=== PATIENT | male | born 1950 | race Caucasian/White ===

== ENCOUNTER → 2016-09-03 | Outpatient (CLI) | payer BC ==
[~2016-09-03] MED LIST: ASPEC81 PO; BUPR100T8 PO; GLC/500 PO; LOVA20TA4 PO; MULT-506 PO; MULT-920 PO
[2016-09-03 13:18] LABS: BASO % 0.7 %; BASO ABS # 0.04 K/uL (0-0.2); COMPLETE YES; EOS % 1.5 %; HEMATOCRIT 42.2 % (42-52); IG% 0.2 %; LYMPH % 29.9 %; LYMPH ABS # 1.83 K/uL (1.2-3.4); MEAN CELL VOLUME 84.7 fL (80-100); MEAN CORPUSCULAR HEMOGLOBIN 29.9 pg (25-34); MEAN CORPUSCULAR HGB CONC 35.3 g/dl (32-36); MEAN PLATELET VOLUME 9.9 fL (7.4-10.4); MONO % 9.2 %; NEUT % 58.5 %; PLATELET COUNT 146 K/uL (130-400); RED BLOOD COUNT 4.98 M/uL (4.7-6.1); WHITE BLOOD COUNT 6.12 K/uL (4.8-10.8)
[2016-09-03 13:26] LABS: ALT/SGPT 56 U/L (12-78); BLOOD UREA NITROGEN 13 mg/dl (7-18); BUN/CREATININE RATIO 16.2 (10-20); CALCIUM 9.2 mg/dl (8.5-10.1); CARBON DIOXIDE 25 mmol/L (21-32); CHLORIDE 104 mmol/L (98-107); CHOLESTEROL 162 mg/dl (0-200); CREATININE 0.81 mg/dl (0.60-1.40); GLUCOSE 117 mg/dl (70-99); POTASSIUM 4.1 mmol/L (3.5-5.1); SODIUM 140 mmol/L (136-145)
[2016-09-03 13:29] LABS: ALB/GLOB RATIO 1.1 (0.9-2); ALKALINE PHOSPHATASE 72 U/L (45-117); AST/SGOT 31 U/L (15-37); CHOLESTEROL/HDL RATIO 4.5; HDL CHOLESTEROL 36 mg/dl; LDL CHOLESTEROL CALCULATED 94 mg/dl; TRIGLYCERIDES 161 mg/dl (0-150); VERY LOW DENSITY LIPOPROT CALC 32 mg/dl
[2016-09-03 14:03] LABS: ESTIMATED AVERAGE GLUCOSE 131 mg/dl; HA1C FLAG Normal (Normal)
== END | disposition home or self-care (01) ==
LOC: C.LABSPEC 12:52
PROVIDERS: ATTEND Family Medicine
DX: E11.9 Type 2 diabetes mellitus without complications (principal); E78.2 Mixed hyperlipidemia; F41.1 Generalized anxiety disorder

== ENCOUNTER → 2017-03-10 | Outpatient (CLI) | payer BC ==
[2017-03-10 13:42] LABS: BASO % 0.5 %; BASO ABS # 0.03 K/uL (0-0.2); COMPLETE YES; EOS % 1.5 %; HEMATOCRIT 42.3 % (42-52); IG% 0.2 %; LYMPH % 31.7 %; LYMPH ABS # 1.92 K/uL (1.2-3.4); MEAN CELL VOLUME 87.2 fL (80-100); MEAN CORPUSCULAR HEMOGLOBIN 29.3 pg (25-34); MEAN CORPUSCULAR HGB CONC 33.6 g/dl (32-36); MONO % 7.6 %; NEUT % 58.5 %; PLATELET COUNT 128 K/uL (130-400); RED BLOOD COUNT 4.85 M/uL (4.7-6.1); WHITE BLOOD COUNT 6.06 K/uL (4.8-10.8)
[2017-03-10 13:57] LABS: ESTIMATED AVERAGE GLUCOSE 140 mg/dl; HA1C FLAG Normal (Normal)
[2017-03-10 14:25] LABS: ALT/SGPT 66 U/L (12-78); BLOOD UREA NITROGEN 14 mg/dl (7-18); BUN/CREATININE RATIO 13.8 (10-20); CARBON DIOXIDE 26 mmol/L (21-32); CHLORIDE 106 mmol/L (98-107); CHOLESTEROL 145 mg/dl (0-200); GLUCOSE 129 mg/dl (70-99); POTASSIUM 4.1 mmol/L (3.5-5.1); SODIUM 139 mmol/L (136-145); TRIGLYCERIDES 117 mg/dl (0-150); VERY LOW DENSITY LIPOPROT CALC 23 mg/dl
[2017-03-10 14:29] LABS: ALKALINE PHOSPHATASE 72 U/L (45-117); AST/SGOT 39 U/L (15-37); CHOLESTEROL/HDL RATIO 4.7; HDL CHOLESTEROL 31 mg/dl; LDL CHOLESTEROL CALCULATED 91 mg/dl
== END | disposition home or self-care (01) ==
LOC: C.LABSPEC 10:21
PROVIDERS: ATTEND Family Medicine
DX: E11.9 Type 2 diabetes mellitus without complications (principal); E78.2 Mixed hyperlipidemia; F41.1 Generalized anxiety disorder; Z12.5 Encounter for screening for malignant neoplasm of prostate

== ENCOUNTER → 2017-03-29 | Outpatient (CLI) | payer BC ==
[2017-03-29 14:38] LABS: BASO % 0.3 %; BASO ABS # 0.02 K/uL (0-0.2); COMPLETE YES; EOS % 1.5 %; HEMATOCRIT 41.2 % (42-52); IG% 0.2 %; LYMPH % 28.7 %; LYMPH ABS # 1.87 K/uL (1.2-3.4); MEAN CELL VOLUME 85.8 fL (80-100); MEAN CORPUSCULAR HEMOGLOBIN 29.4 pg (25-34); MEAN CORPUSCULAR HGB CONC 34.2 g/dl (32-36); MEAN PLATELET VOLUME 10.3 fL (7.4-10.4); MONO % 8.1 %; NEUT % 61.2 %; PLATELET COUNT 141 K/uL (130-400); WHITE BLOOD COUNT 6.51 K/uL (4.8-10.8)
[2017-03-29 15:03] LABS: ALT/SGPT 64 U/L (12-78); AST/SGOT 36 U/L (15-37); BLOOD UREA NITROGEN 16 mg/dl (7-18); BUN/CREATININE RATIO 18.1 (10-20); CALCIUM 8.6 mg/dl (8.5-10.1); CARBON DIOXIDE 25 mmol/L (21-32); CHLORIDE 105 mmol/L (98-107); CREATININE 0.86 mg/dl (0.60-1.40); GLUCOSE 138 mg/dl (70-99); SODIUM 138 mmol/L (136-145)
[2017-03-29 15:14] LABS: ALB/GLOB RATIO 1.1 (0.9-2); ALKALINE PHOSPHATASE 73 U/L (45-117)
== END | disposition home or self-care (01) ==
LOC: C.LABSPEC 13:44
PROVIDERS: ATTEND Family Medicine
DX: R07.89 Other chest pain (principal)

== ENCOUNTER → 2017-09-20 | Outpatient (CLI) | payer BC ==
[2017-09-20 14:05] LABS: BASO % 0.3 %; BASO ABS # 0.02 K/uL (0-0.2); EOS % 1.7 %; EOS ABS # 0.11 K/uL (0-0.5); HEMATOCRIT 42.3 % (42-52); HEMOGLOBIN 14.3 g/dL (14.0-18.0); IG# 0.01 K/uL (0.00-0.02); LYMPH ABS # 1.84 K/uL (1.2-3.4); MEAN CELL VOLUME 86.2 fL (80-100); MEAN CORPUSCULAR HEMOGLOBIN 29.1 pg (25-34); MEAN CORPUSCULAR HGB CONC 33.8 g/dl (32-36); MEAN PLATELET VOLUME 10.1 fL (7.4-10.4); MONO % 7.1 %; MONO ABS # 0.45 K/uL (0.11-0.59); NEUT % 61.7 %; NEUT ABS # 3.92 K/uL (1.4-6.5); PLATELET COUNT 135 K/uL (130-400); RED CELL DISTRIBUTION WIDTH CV 13.3 % (11.5-14.5); RED CELL DISTRIBUTION WIDTH SD 41.9 fL (36.4-46.3); WHITE BLOOD COUNT 6.35 K/uL (4.8-10.8)
[2017-09-20 14:33] LABS: ALBUMIN 3.9 gm/dl (3.4-5.0); ALT/SGPT 58 U/L (12-78); AST/SGOT 34 U/L (15-37); BLOOD UREA NITROGEN 16 mg/dl (7-18); CALCIUM 9.1 mg/dl (8.5-10.1); CARBON DIOXIDE 27 mmol/L (21-32); CREATININE 1.01 mg/dl (0.60-1.40); GLUCOSE 133 mg/dl (70-99); POTASSIUM 4.2 mmol/L (3.5-5.1); SODIUM 137 mmol/L (136-145)
[2017-09-20 14:36] LABS: ALKALINE PHOSPHATASE 72 U/L (45-117); CHOLESTEROL 148 mg/dl (0-200); LDL CHOLESTEROL CALCULATED 91 mg/dl; TOTAL PROTEIN 7.6 gm/dl (6.4-8.2)
[2017-09-21 07:27] LABS: HEMOGLOBIN A1C 6.4 % (4.5-5.6)
== END | disposition home or self-care (01) ==
LOC: C.LABSPEC 13:25
PROVIDERS: ATTEND Family Medicine
DX: E11.9 Type 2 diabetes mellitus without complications (principal)

== ENCOUNTER 2023-12-01 08:44 | Observation (INO) ==
[2023-12-01 09:16] LABS: Basophils # (auto) 0.03 K/uL (0.00-0.20); Basophils % (auto) 0.5 %; Eosinophils # (auto) 0.17 K/uL (0.00-0.50); Eosinophils % (auto) 2.7 %; Hematocrit (blood only) 39.3 % (42.0-52.0); Hemoglobin 13.1 g/dl (14.0-18.0); Immature Granulocytes # (auto) 0.02 K/uL (0.01-0.20); Immature Granulocytes % (auto) 0.3 %; Lymphocytes # (auto) 1.48 K/uL (1.20-3.40); Lymphocytes % (auto) 23.8 %; Mean Corpuscular Hemoglobin 28.4 pg (25.0-34.0); Mean Corpuscular Hgb Conc 33.3 g/dL (32.0-36.0); Mean Corpuscular Volume 85.1 fL (80.0-100.0); Mean Platelet Volume 9.4 fL (9.4-12.4); Monocytes # (auto) 0.56 K/uL (0.11-0.59); Neutrophils # (auto) 3.95 K/uL (1.40-6.50); Neutrophils % (auto) 63.7 %; Platelet Count 188 K/uL (130-400); RDW Coefficient of Variation 14.1 % (11.5-14.5); RDW Standard Deviation 43.5 fL (36.4-46.3); Red Blood Count 4.62 M/uL (4.70-6.10); White Blood Count 6.21 K/ul (4.8-10.8)
[2023-12-01 09:17] LABS: Appearance Urine Clear (Clear); Bilirubin Urine Negative (Negative); Blood Urine Negative (Negative); Color Urine Yellow; Glucose Urine UA Negative (Negative); Ketones Urine Negative (Negative); Leukocyte Esterase Urine Negative (Negative); Nitrite Urine Negative (Negative); Protein Urine Negative (Negative); Specific Gravity Urine 1.007 (1.000-1.030); Urobilinogen Urine Negative (Negative)
[2023-12-01 09:39] LABS: Albumin Globulin Ratio 1.3 (0.9-2); Albumin Level 4.1 gm/dl (3.4-5.0); BUN Creatinine Ratio 10.9 (10-20); Bilirubin,Total 0.6 mg/dl (0.2-1.0); Calcium 9.1 mg/dl (8.6-10.3); Creatinine Clr Calc Pharmacy 70.6 ml/min; Est GFR (African American) 85.1 ml/min; Est GFR (Non-African American) 73.4 ml/min; Globulin 3.1 gm/dl (2.5-4.0); Potassium 4.2 mmol/L (3.5-5.1); Total Protein 7.2 gm/dl (6.0-8.3)
[2023-12-01 09:40] LABS: Partial Thromboplastin Ratio 0.9; Partial Thromboplastin Time 25 Seconds (21-31)
--- NOTE | 2023-12-01 09:41 | Emergency Department Note ---
Impression & Plan Exertional chest pain ED Provider Note Provider: Meet Siu MD DATE OF SERVICE: 12/01/2023 CHIEF COMPLAINT: Referred by , Intermittent chest pain HISTORY OF PRESENT ILLNESS: Patient is a 73-year-old gentleman history of diabetes, dyslipidemia and varicosities of the leg presenting here today referred from the outpatient doctors office. Patient states over the last 3 to 4 months he has been having intermittent exertionally provoked chest discomfort in the mid to left chest. Describes a burning in nature without radiation. States over this time has had couple episodes of some loose stools and nausea and a bit of stomach upset but it does not seem correlated with when he having the chest discomfort. No personal cardiac history reported for the patient states he is stress test about 5 years ago is reassuring. Not on blood thinners at this time and denies recent travel. Is planning to have outpatient follow-up regarding the varicosity in his leg this coming week. Does take aspirin daily by his report. Does not report any significant shortness of breath. Patient states walking to the office today he developed chest discomfort with exertion that improves after a period of rest. No active chest pain at this time. PAST MEDICAL HISTORY: As noted above MEDICATIONS: Reviewed home medications FMH: Uncle with early cardiac history SOCIAL HISTORY: , psychologist, distant former smoker PHYSICAL EXAM: GENERAL: alert and oriented in no acute distress on stretcher Head: normocephalic and atraumatic EYES: No injection, discharge or icterus. NECK: Trachea midline. ENT: Mucous membranes pink and moist. LUNGS: Airway patent. No retractions. Breath sounds clear HEART: Regular rate and rhythm. No chest wall tenderness ABDOMEN: Soft and non-tender, without guarding or rebound. No appreciable masses SKIN: Acyanotic, warm, dry, without rashes EXTREMITIES: Without swelling, tenderness or deformity NEUROLOGICAL: No focal deficits. No aphasia. No facial droop or slurred speech. Ambulatory. EK bpm sinus rhythm first-degree AV block. No PVC with 1 PAC noted. No acute ST segment elevation with some inferior T wave inversions and a QTc of 442. CONTINUOUS CARDIAC MONITORING: was ordered and showed a heart rate of 70s to 80s bpm in sinus rhythm first-degree heart block Patient's laboratory studies and imaging reviewed. Differential includes Fracture, subluxation, dislocation, contusion, ligamentous injury, neurovascular, compartment syndrome, rhabdomyolysis, as well as other pathologies. IMPRESSION/MEDICAL DECISION MAKING: Patient well-appearing without active symptoms at this time. Does report some chest pain with even just walking to the office earlier. Has a several month history of similar. EKG with some T wave inversions but no evidence of STEMI. No signs of significant arrhythmia. Patient reports mild family history of cardiac disease. Does have some cardiac risk factors. No recent travel. No obvious significant leg swelling. Doubt this represents PE or DVT. Doubt aortic dissection. Benign abdomen on exam. Did complete basic blood work here including electrolytes and LFTs without significant abnormality. No signs of renal dysfunction or acute hepatitis or pancreatitis. Troponin was completed to look for signs of heart strain as his symptoms sound exertionally provoked and I question an angina equivalent. Ordered full dose aspirin. Troponin completed here does return within the normal range which is somewhat reassuring although again still having a concerning story with multiple risk factors. Discussed with him staying for further evaluation and the hospitalist team was contacted. DIAGNOSIS: Exertional chest pain DISPOSITION: Hospitalist will evaluate Patient was agreeable with this plan. 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 Right shoulder pain Moderate obstructive sleep apnea Superficial phlebitis of right leg Close exposure to COVID-19 virus Pharyngitis Cough Pancreatic abnormality Epigastric abdominal pain Peripheral neuropathy Foreign body in foot Plantar wart, right foot Bilateral tinnitus Sensorineural hearing loss (SNHL) of both ears SNHL (sensorineural hearing loss) Shoulder pain Prostate cancer screening Urinary frequency Open wound of thumb Colon cancer screening Encounter for pre-operative examination Vocal cord paralysis (Acute) ROWAN (obstructive sleep apnea) (Acute) Ocular hypertension, unspecified eye (Acute) Generalized osteoarthritis (Acute) Generalized anxiety disorder (Acute) Dyslipidemia (Acute) 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) Chronic GERD (Acute) Benign essential hypertension (Acute) Atopic dermatitis (Acute) Medicare annual wellness visit, initial Osteoarthritis of right knee SNHL (sensorineural hearing loss) Tinnitus Colon cancer screening Sensorineural hearing loss (SNHL) of both ears Knee pain, right Diabetes (Chronic) Paralyzed vocal cords (Chronic) Obesity (BMI 30.0-34.9) Hypercholesterolemia (Chronic) History of right hip replacement Acute superficial venous thrombosis of right lower extremity (Acute) 2016 Medical History 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 Right shoulder pain Moderate obstructive sleep apnea Superficial phlebitis of right leg Close exposure to COVID-19 virus Pharyngitis Cough Pancreatic abnormality Epigastric abdominal pain Peripheral neuropathy Foreign body in foot Bilateral tinnitus Sensorineural hearing loss (SNHL) of both ears SNHL (sensorineural hearing loss) Shoulder pain Osteoarthritis GERD (gastroesophageal reflux disease) Sleep apnea Sensorineural hearing loss (SNHL) of both ears Acute superficial venous thrombosis of right lower extremity Hypercholesterolemia Obesity (BMI 30.0-34.9) Paralyzed vocal cords Diabetes Surgical History History of hand surgery H/O tooth extraction History of cataract surgery H/O neck surgery History of right hip replacement Family History Father Cardiac disorder Diabetes Mother Colonic polyp Grandmother (Maternal) Stroke Social History Smoking Status: Former smoker Second Hand Exposure: No; Do You Dip or Chew Tobacco: No; Hx Alcohol Use: Yes Hx Substance Use: No Preferred Language: Nauruan Communication Ability: Effective Visual Impairment: No Limitations Hearing Ability: Normal Cable Television Line Technician Required: No Beliefs That Will Affect Care: None Current Living Situation: Spouse current occupational status: employed current occupation: Psychologist Other Information That Helps Us Care for You: No Feels Safe at Home: Yes Safety Concerns: Feels Safe At This Time Seatbelt Use: always Assistive Devices: Denture - Upper, Glasses and Hearing Aid - Bilateral Allergies Allergies Allergy/AdvReac Type Severity Reaction Status Date / Time vancomycin Allergy Intermediate DRUG RASH Verified 12/01/23 07:03 FROM [id number] ADM Home Meds Previous Rx's Medication Instructions Recorded CPAP Supplies #1 ea 02/06/19 aspirin 81 mg tablet,delayed 81 mg PO QAM #90 tabs 04/14/19 release multivitamin (Multiple Vitamins 1 tab PO DAILY #90 tabs 04/14/19 tablet) blood sugar diagnostic (OneTouch #100 ea 09/13/20 Ultra Blue Test Strip) lancets 32 gauge #100 ea 09/13/20 CPAP Supplies #1 ea 02/06/21 triamcinolone acetonide 0.1 % 1 applic topical BID PRN itchy 07/01/23 topical cream skin #240 grams atorvastatin 20 mg tablet 20 mg PO HS #90 tabs 08/03/23 bupropion HCl 100 mg tablet 100 mg PO DAILY #90 tabs 08/03/23 metformin 500 mg tablet,extended 500 mg PO BID #180 tabs 08/03/23 release 24 hr lisinopril 10 mg tablet 10 mg PO QAM #90 tabs 09/01/23 CPAP Machine #1 ea 10/15/23 pantoprazole 40 mg tablet,delayed 40 mg PO QAM #90 tabs 10/15/23 release Results & Data (ED) Vital Signs Vital Signs - 24 hr 12/01/23 08:52 12/01/23 08:52 12/01/23 09:02 Temperature 36.8 C Temperature Source Oral Pulse Rate 63 82 Pulse Rhythm Regular Respiratory Rate 16 17 Respiratory Effort / Characteristics Non-Labored Respiratory Depth Normal Blood Pressure 152/90 H Blood Pressure Mean 110 Pulse Oximetry 96 96 96 Oxygen Delivery Method Room Air Room Air Room Air Oxygen Flow Rate 0 Sepsis Recent Fever Within 48 Hours No Sepsis New/Unexplained Change in Mental Status N/A Sepsis Action Taken by Nursing No Action Required 12/01/23 09:04 12/01/23 10:00 Temperature Temperature Source Pulse Rate 87 78 Pulse Rhythm Respiratory Rate 14 Respiratory Effort / Characteristics Respiratory Depth Blood Pressure 156/81 H Blood Pressure Mean 106 Pulse Oximetry 97 Oxygen Delivery Method Room Air Oxygen Flow Rate Sepsis Recent Fever Within 48 Hours Sepsis New/Unexplained Change in Mental Status Sepsis Action Taken by Nursing Laboratory Data 12/01/23 09:03 12/01/23 09:03 Lab Results 12/01/23 12/01/23 Range/Units 09:03 09:07 WBC 6.21 (4.8-10.8) K/ul RBC 4.62 L (4.70-6.10) M/uL Hgb 13.1 L (14.0-18.0) g/dl Hct 39.3 L (42.0-52.0) % MCV 85.1 (80.0-100.0) fL MCH 28.4 (25.0-34.0) pg MCHC 33.3 (32.0-36.0) g/dL RDW Std Deviation 43.5 (36.4-46.3) fL RDW Coeff of [place] 14.1 (11.5-14.5) % Plt Count 188 (130-400) K/uL MPV 9.4 (9.4-12.4) fL Immature Gran % (Auto) 0.3 % Neut % (Auto) 63.7 % Lymph % (Auto) 23.8 % [place] % (Auto) 9.0 % Eos % (Auto) 2.7 % Baso % (Auto) 0.5 % Neut # (Auto) 3.95 (1.40-6.50) K/uL Lymph # (Auto) 1.48 (1.20-3.40) K/uL [place] # (Auto) 0.56 (0.11-0.59) K/uL Eos # (Auto) 0.17 (0.00-0.50) K/uL Baso # (Auto) 0.03 (0.00-0.20) K/uL Immature Gran # (Auto) 0.02 (0.01-0.20) K/uL ESR 16 (0-20) mm/hr PT 11.0 (9.0-12.0) Seconds INR 1.0 (0.9-1.1) APTT 25 (21-31) Seconds PTT Ratio 0.9 D-Dimer 620 H* (0-500) ug/L FEU Sodium 142 (136-145) mmol/L Potassium 4.2 (3.5-5.1) mmol/L Chloride 105 (98-107) mmol/L Carbon Dioxide 31 (21-32) mmol/L Anion Gap 6 (3-11) BUN 11 (6-23) mg/dl Creatinine 1.01 (0.6-1.4) mg/dl Est Cr Clr Drug Dosing 70.6 ml/min Est GFR ( Amer) 85.1 ml/min Est GFR (Non-Af Amer) 73.4 ml/min BUN/Creatinine Ratio 10.9 (10-20) Glucose 131 H (70-99(Fasting)) mg/dl Calcium 9.1 (8.6-10.3) mg/dl Total Bilirubin 0.6 (0.2-1.0) mg/dl AST 27 (13-39) U/L ALT 29 (7-52) U/L Alkaline Phosphatase 55 (34-104) U/L Troponin I High Sens 10.9 (0-20) pg/ml Total Protein 7.2 (6.0-8.3) gm/dl Albumin 4.1 (3.4-5.0) gm/dl Globulin 3.1 (2.5-4.0) gm/dl Albumin/Globulin Ratio 1.3 (0.9-2) Lipase 32 (11-82) U/L Urine Color Yellow Urine Appearance Clear (Clear) Urine pH 8.0 H (4.5-7.5) Ur Specific [place] 1.007 (1.000-1.030) Urine Protein Negative (Negative) Urine Glucose (UA) Negative (Negative) Urine Ketones Negative (Negative) Urine Blood Negative (Negative) Urine Nitrite Negative (Negative) Urine Bilirubin Negative (Negative) Urine Urobilinogen Negative (Negative) Ur Leukocyte Esterase Negative (Negative) Administered Medications Insulin Aspart (Insulin Aspart Per Unit Charge) 0 units SC ACHS LESLIE Stop: 12/31/23 11:29 Last Admin: 12/01/23 12:59 Dose: Not Given Documented By: GINNA Discontinued Medications Aspirin (Aspirin 81 Mg Chew) 243 mg PO NOW STA Stop: 12/01/23 10:26 Last Admin: 12/01/23 10:32 Dose: 243 mg Documented By: LIZZY Insulin Aspart (Insulin Aspart Per Unit Charge) 0 units SC Q6H LESLIE Stop: 12/31/23 10:59 Last Admin: 12/01/23 11:48 Dose: Not Given Documented By: GINNA Ioversol (Optiray 320 125ml) 118 ml IV ONCE ONE Stop: 12/01/23 11:52 Last Admin: 12/01/23 11:51 Dose: 118 ml Documented By: EUGENIE Imaging Data Radiologist's Impression: Chest X-Ray 12/01/23 09:01 XR chest 1V portable CLINICAL HISTORY: Chest pain, nonspecific TECHNIQUE: Single frontal radiograph of the chest was obtained. Comparison: None available at the time of this dictation. FINDINGS: ACDF is seen. The cardiomediastinal silhouette is normal. The lungs are clear. No evidence of pleural effusion or pneumothorax. IMPRESSION: No acute chest disease. ACT 112: Negative or not required by law. Electronically signed by: Erasmo Ku M.D. 12/01/2023 10:08 AM Discharge Plan Visit Data Chief Complaint: Cardiac Assessment ED Provider: Meet Siu Discharge Problem: Exertional chest pain Patient Disposition: Admitted As Inpatient Discharge Instructions Interventions: ED Discharge Assessment Last Done: 12/01/23 12:39
[2023-12-01 09:46] LABS: Troponin I High Sensitivity 10.9 pg/ml (0-20)
--- NOTE | 2023-12-01 10:10 | XRay Report ---
XR chest 1V portable CLINICAL HISTORY: Chest pain, nonspecific TECHNIQUE: Single frontal radiograph of the chest was obtained. Comparison: None available at the time of this dictation. FINDINGS: ACDF is seen. The cardiomediastinal silhouette is normal. The lungs are clear. No evidence of pleural effusion or pneumothorax. IMPRESSION: No acute chest disease. ACT 112: Negative or not required by law. Electronically signed by: Erasmo Ku M.D. 12/01/2023 10:08 AM
[2023-12-01] MEDS: ASPIRIN 81 MG CHEW PO STA (10:32)
--- NOTE | 2023-12-01 10:41 | History & Physical Report ---
Date of Service December 01, 2023 Assessment & Plan (1) Exertional chest pain: Plan: -Admit to med/tele -Currently stable and non-toxic appearing -Has been experiencing 3-4 months of exertional, left-sided chest pain which is relieved with rest -Pain is not reproducible on palpation -Patient does not have a previous hx of NM or coronary stent placement but has many risk factors for CAD including obesity, DMII, HTN, HLD, ROWAN -Initial high sen trop is WNL, will repeat a 2 hour trop now -Will obtain D-dimer, if positive will obtain CTA of the chest with PE protocol -Will consult Cardiology to see if they would want to do a stress test or plan for non-emergent cardiac cath -S/P 243 mg Aspirin as he had his am baby aspirin prior to arrival -Continue to monitor on tele -Will continue his lisinopril and statin -Will obtain TTE now -HH/DMII diet, NPO at midnight in case of heart cath tomorrow -SQ lovenox for DVT ppx -AM CBC, CMP, mag, PT/INR, A1c, fasting lipid panel (2) Benign essential hypertension: Plan: -Stable -Continue lisinopril (3) Diabetes: Plan: -Hold metformin -Monitor BSG ACHS, goal is 110-160 -Start CF 50 and CF 15 ACHS for now -Hold basal insulin to avoid hypoglycemia -Adjust regimen as needed (4) Hypercholesterolemia: Plan: -Continue statin (5) ROWAN (obstructive sleep apnea): Plan: -HS CPAP ordered Plan The patient was discussed with Dr. Foley at the time of the admission History of Present Illness Chief Complaint: Exertional chest pain Primary Care Provider: Daniel Saldana MD Eze is a 73 year old male with a PMH significant for DMII, HTN, ROWAN on HS CPAP, superficial phlebitis (completed Xarelto therapy), hyperlipidemia, and GERD who presented to the [facility] ED on 12/01/23 from his PCP's office for ongoing exertional chest pain over the past 3-4 months. He remained stable in the ED. Labs including CBC, CMP, high sen trop, lipase, and UA were unremarkable. ECG shows sinus rhythm with 1st degree AV block and possible and age undetermined inferior/anterior infarcts. Chest xray was read as negative for acute findings. We were asked to admit the patient for ongoing workup. Prior to admission the patient was given 243 mg Aspirin. At the time of the exam the patient was sitting in bed in no acute distress. He confirms that he has been experiencing left-sided exertional chest pain over the past 3-4 months. Pain usually stays on the left sternal border and does not radiate. Does not typically occur at rest, is relieved with rest, and has stayed fairly consistent over this time. Denies a previous hx of NM or needed cardiac stents, brother had an NM at 50 but he otherwise does not have significant cardiac hx on either side of his family. Denies SOB at rest, pleuritic chest pain, cough, hemoptysis, nausea/vomiting, abdominal pain, dysuria hematuria, diarrhea, melena, LE swelling, long travel, LE trauma. He does not use alcohol or tobacco. He is a full code and his is his POA if he cannot make decisions himself. Please refer to Dr. Foley's attestation for any changes to the treatment plan Allergies Allergy/AdvReac Type Severity Reaction Status Date / Time vancomycin Allergy Intermediate DRUG RASH Verified 12/01/23 07:03 FROM [id number] ADM Home Medications Medication Instructions Recorded Confirmed Type CPAP Supplies #1 ea 02/06/19 12/01/23 Rx aspirin 81 mg tablet,delayed 81 mg PO QAM #90 tabs 04/14/19 12/01/23 Rx release multivitamin (Multiple Vitamins 1 tab PO DAILY #90 tabs 04/14/19 12/01/23 Rx tablet) blood sugar diagnostic (OneTouch #100 ea 09/13/20 12/01/23 Rx Ultra Blue Test Strip) lancets 32 gauge #100 ea 09/13/20 12/01/23 Rx CPAP Supplies #1 ea 02/06/21 12/01/23 Rx triamcinolone acetonide 0.1 % 1 applic topical BID PRN itchy 07/01/23 12/01/23 Rx topical cream skin #240 grams atorvastatin 20 mg tablet 20 mg PO HS #90 tabs 08/03/23 12/01/23 Rx bupropion HCl 100 mg tablet 100 mg PO DAILY #90 tabs 08/03/23 12/01/23 Rx metformin 500 mg tablet,extended 500 mg PO BID #180 tabs 08/03/23 12/01/23 Rx release 24 hr lisinopril 10 mg tablet 10 mg PO QAM #90 tabs 09/01/23 12/01/23 Rx CPAP Machine #1 ea 10/15/23 12/01/23 Rx pantoprazole 40 mg tablet,delayed 40 mg PO QAM #90 tabs 10/15/23 12/01/23 Rx release Past Med/Surg History Problem List (Updated 12/01/23 @ 11:06 by Niranjan Walls PA-C) Exertional chest pain Nausea and vomiting Chest discomfort 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 Right shoulder pain Moderate obstructive sleep apnea Superficial phlebitis of right leg Close exposure to COVID-19 virus Pharyngitis Cough Pancreatic abnormality Epigastric abdominal pain Peripheral neuropathy Foreign body in foot Plantar wart, right foot Bilateral tinnitus Sensorineural hearing loss (SNHL) of both ears SNHL (sensorineural hearing loss) Shoulder pain Prostate cancer screening Urinary frequency Open wound of thumb Colon cancer screening Encounter for pre-operative examination Vocal cord paralysis (Acute) ROWAN (obstructive sleep apnea) (Acute) Ocular hypertension, unspecified eye (Acute) Generalized osteoarthritis (Acute) Generalized anxiety disorder (Acute) Dyslipidemia (Acute) 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) Chronic GERD (Acute) Benign essential hypertension (Acute) Atopic dermatitis (Acute) Medicare annual wellness visit, initial Osteoarthritis of right knee SNHL (sensorineural hearing loss) Tinnitus Colon cancer screening Sensorineural hearing loss (SNHL) of both ears Knee pain, right Diabetes (Chronic) Paralyzed vocal cords (Chronic) Obesity (BMI 30.0-34.9) Hypercholesterolemia (Chronic) History of right hip replacement Acute superficial venous thrombosis of right lower extremity (Acute) 2015 Medical History 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 Right shoulder pain Moderate obstructive sleep apnea Superficial phlebitis of right leg Close exposure to COVID-19 virus Pharyngitis Cough Pancreatic abnormality Epigastric abdominal pain Peripheral neuropathy Foreign body in foot Bilateral tinnitus Sensorineural hearing loss (SNHL) of both ears SNHL (sensorineural hearing loss) Shoulder pain Osteoarthritis GERD (gastroesophageal reflux disease) Sleep apnea Sensorineural hearing loss (SNHL) of both ears Acute superficial venous thrombosis of right lower extremity Hypercholesterolemia Obesity (BMI 30.0-34.9) Paralyzed vocal cords Diabetes Surgical History History of hand surgery H/O tooth extraction History of cataract surgery H/O neck surgery History of right hip replacement Family History Father Cardiac disorder Diabetes Mother Colonic polyp Grandmother (Maternal) Stroke Social History Smoking Status: Former smoker Second Hand Exposure: No; Do You Dip or Chew Tobacco: No; Hx Alcohol Use: No Hx Substance Use: No Preferred Language: Cameroonian Communication Ability: Effective Visual Impairment: No Limitations Hearing Ability: Normal Senior Business Intelligence Analyst Required: No Beliefs That Will Affect Care: None Current Living Situation: Spouse current occupational status: employed current occupation: Psychologist Feels Safe at Home: Yes Seatbelt Use: always Assistive Devices: Denture - Upper, Glasses and Hearing Aid - Bilateral Physical Exam Physical Exam: Physical Exam: General: In no acute distress, stated age, well-nourished, non-toxic appearing HEENT: Normocephalic, atraumatic, no scleral icterus, pupils around round, symmetrical, and reactive to light, moist mucus membranes, no JVD, trachea midline, no thyromegaly Chest/Pulm: No respiratory distress, symmetrical chest expansion, clear breath sounds throughout Cardiac: RRR, 2/6 systolic murmur noted Abdomen: Negative for ascites and bruising, normoactive bowel sounds, soft, non-tender to palpation throughout Musculoskeletal: Symmetrical and without signs of acute trauma, upper and lower extremities with full ROM, no atrophy, spasticity, or flaccidity Extremities: Radial, dorsalis pedis, and posterior tibial pulses are intact and symmetrical, 1+ edema noted in the BL LE's Skin: Warm, dry, no rashes , lesions, or scars noted Neuro: Alert and oriented to person, place, month, year, and president, no focal defects, no tremors noted Psych: No acute distress, calm and cooperative during the exam Results & Data Results & Data Vital Signs (Past 12 Hours) Vital Signs Temp Pulse Resp BP Pulse Ox O2 Del Method O2 Flow Rate 12/01/23 10:00 78 14 156/81 H 97 Room Air 12/01/23 09:04 87 12/01/23 09:02 82 17 96 Room Air 05/29/24 08:52 96 Room Air 0 12/01/23 08:52 36.8 C 63 16 152/90 H 96 Room Air Laboratory Results Abnormal lab results 12/01/23 12/01/23 Range/Units 09:03 09:07 RBC 4.62 L (4.70-6.10) M/uL Hgb 13.1 L (14.0-18.0) g/dl Hct 39.3 L (42.0-52.0) % Glucose 131 H (70-99(Fasting)) mg/dl Urine pH 8.0 H (4.5-7.5) Diagnostic Findings Chest X-Ray 12/01/23 09:01 XR chest 1V portable CLINICAL HISTORY: Chest pain, nonspecific TECHNIQUE: Single frontal radiograph of the chest was obtained. Comparison: None available at the time of this dictation. FINDINGS: ACDF is seen. The cardiomediastinal silhouette is normal. The lungs are clear. No evidence of pleural effusion or pneumothorax. IMPRESSION: No acute chest disease. ACT 112: Negative or not required by law. Electronically signed by: Erasmo Ku M.D. 12/01/2023 10:08 AM ECG Additional Comments: Sinus rhythm with 1st degree A-V block with Premature atrial complexes Inferior infarct , age undetermined Possible Anterior infarct , age undetermined Abnormal ECG When compared with ECG of 26-JUL-2008 10:08, Premature atrial complexes are now Present MI interval has increased Inferior infarct is now Present T wave inversion now evident in Inferior leads Nonspecific T wave abnormality, worse in Anterolateral leads Code Status & VTE Plan Code Status Full code VTE Prophylaxis Plan VTE Prophylaxis will be ordered: Yes Supervising Physician Co-Signing Physician Notes 73 yo male with h/o DM type 2, HTN, alcohol abuse in the distant past, presents with exertional chest pain, abnormal EKG, trop is negative, no chest pain at rest, D-dimer is elevated admit for observation tele monitor, serial trops ECHO, ? card cath consult cardiology insulin sliding scale continue Lisinopril, statins , ASA obtain CTA obtain lipid profile, Hgb A1c DVT prophylaxis PG Care Time/CCT Total # of Minutes Spent Total Time Spent with Patient: Total time spent is greater than 50% in coordination of care (as documented) at patient's floor/unit and/or counseling patient: Coding [place] [address] INT INP/OBS CARE 2/55MIN Patient Type Established Medical Decision Making Moderate Complexity Diagnoses Exertional chest pain R07.9 Benign essential hypertension I10 Diabetes E11.9 Hypercholesterolemia E78.00 ROWAN (obstructive sleep apnea) G47.33
[2023-12-01] MEDS ORDERED: GLUCOSE 40% GEL 15 GM TUBE PO PRN (10:58)
[2023-12-01] MEDS ORDERED: CARBOHYDRATES FOR HYPOGLYCEMIA PO PRN (10:58)
[2023-12-01] MEDS ORDERED: GLUCAGON FOR INJ 1 MG VIAL SQ PRN (10:58)
[2023-12-01] MEDS ORDERED: DEXTROSE 50% 50 ML SYRINGE IV PRN (10:58)
[2023-12-01] MEDS ORDERED: GLUCOSE 10 TAB/TUBE PO PRN (10:58)
[2023-12-01 11:36] LABS: D Dimer 620 ug/L FEU (0-500)
--- NOTE | 2023-12-01 11:44 | Electrocardiogram Report ---
Test Reason : Blood Pressure : / mmHG Vent. Rate : 085 BPM Atrial Rate : 085 BPM P-R Int : 212 ms QRS Dur : 100 ms QT Int : 372 ms P-R-T Axes : 047 -13 -37 degrees QTc Int : 442 ms Sinus rhythm with 1st degree A-V block with Premature atrial complexes Inferior infarct , age undetermined Poor R wave progression, consider anterior NM vs. lead placement vs. LVH Abnormal ECG When compared with ECG of 26-JUL-2008 10:08, Premature atrial complexes are now Present [place] interval has increased Criteria for Inferior infarct is now Present T wave inversion now evident in Inferior leads Nonspecific T wave abnormality, worse in Anterolateral leads Confirmed by Tyler Adams ([id number]) on 12/01/2023 11:43:42 AM Referred By: REFERRED SELF Confirmed By:Tyler Adams
[2023-12-01] MEDS: INSULIN ASPART PER UNIT CHARGE SC SCH ×2 (11:48→12:59)
[2023-12-01] MEDS: OPTIRAY 320 125ml IV ONE (11:51)
[2023-12-01 11:55] LABS: C Reactive Protein < 0.50 mg/dl (0-0.5)
[2023-12-01 12:02] LABS: Troponin I High Sensitivity 10.2 pg/ml (0-20)
--- NOTE | 2023-12-01 12:28 | CT Scan Report ---
CT ANGIOGRAM OF THE CHEST CLINICAL HISTORY: Dyspnea COMPARISON STUDY: Chest x-ray dated 12/01/2023. TECHNIQUE: Following the IV administration of 118 cc of Optiray 320, CT angiogram of the chest was pe rformed from the upper abdomen to the thoracic inlet utilizing the pulmonary embolus protocol. Images are reviewed in the axial, sagittal, and coronal planes. 3-D MIPS images are created and assessed. I V contrast was administered without complication. A dose lowering technique was utilized adhering to the principles of ALARA. CT DOSE: 790.06 mGy.cm FINDINGS: Thyroid: Imaged portions of the thyroid gland are normal in size and attenuation. Thoracic aorta: There is atherosclerotic calcification of the thoracic aorta, which is normal in ga connie and demonstrates bovine variant arch anatomy. No dissection is seen. Pulmonary vasculature: The pulmonary trunk is normal in caliber. There are no filling defects identif ied in main, lobar, or segmental pulmonary branches to suggest pulmonary embolus. Heart: The heart is enlarged and without pericardial effusion. There are coronary artery calcificatio ns. Lungs and pleural spaces: Evaluation of the lung parenchyma is degraded by motion artifact. There is no airspace consolidation typical for pneumonia or pleural effusion. Scarring/atelectasis is noted at the lung bases. Emphysematous change is observed. Secretions are noted in the upper trachea. There a re scattered calcified granulomas. Mediastinum: There are numerous subcentimeter mediastinal lymph nodes. Beba: Prominent bilateral hilar nodes measure up to 9 mm in short axis. Axillae: There is no axillary lymphadenopathy. Upper abdomen: The liver is still taut. Calcifications are noted in the right hepatic lobe. There are numerous calcified gallstones the spleen is mildly enlarged measuring 13.7 cm in length. Prominent l ymph nodes are noted in the taz hepatis. There is a small hiatal hernia. Skeletal structures: The skeletal structures are osteopenic. Degenerative change is noted in the shou lders and spine. Fusion hardware is seen in the lower cervical spine. No lytic or blastic bony lesion s are seen. IMPRESSION: 1. There is no evidence of pulmonary embolus in the main, lobar, or segmental pulmonary arteries. 2. There is no airspace consolidation or pleural effusion. 3. Cardiomegaly and emphysema. 4. Prominent mediastinal and hilar nodes are nonspecific and may be reactive. 5. Hepatic steatosis, splenomegaly, and cholelithiasis are seen in the upper abdomen. 6. Additional findings as above. ACT 112: Negative or not required by law. Electronically signed by: Daniel Bush M.D. 12/01/2023 12:27 PM
--- NOTE | 2023-12-01 15:56 | XCELERA ---
[id number] \\[id number]
[2023-12-01] MEDS: ENOXAPARIN INJ 40 MG/0.4 ML SYR SQ SCH (16:12)
--- NOTE | 2023-12-01 16:41 | Cardiology Consultation ---
Date of Consultation December 01, 2023 Assessment & Plan (1) Exertional chest pain: (2) Abnormal stress echocardiogram: (3) Diabetes mellitus, type 2: (4) Hypercholesterolemia: (5) HTN (hypertension): Plan 73-year-old man with multiple vascular risk factors notes several months of exertional chest discomfort and demonstrated evidence of RCA territory myocardial ischemia on stress echocardiogram at low workload today. Unlikely that this could be medically managed given onset of symptoms at such a low workload, therefore after discussion of risks, benefits, and alternatives, through shared decision making determined that cardiac catheterization with possible revascularization would be appropriate. Arrangements underway for cardiac catheterization tomorrow morning. No rest symptoms or evidence of ongoing myocardial ischemia, therefore no need f or anticoagulation. Continue aspirin, statin, and ARIA inhibitor. Further recommendations based upon catheterization results. History of Present Illness Reason for Consultation: Exertional chest pain Requesting Physician: Michaela Foley MD Attending Physician: Michaela Foley MD History of Present Illness 73-year-old man with multiple vascular risk factors (DM/on insulin, HTN, dyslipidemia, age, gender) but no known cardiac history who has noted several months of exertional dyspnea, often associated with a "burning" precordial chest sensation. Based on the symptoms, he underwent a stress echocardiogram today and demonstrated probable RCA territory myocardial ischemia at a low workload. after discussion of available options, he agreed with proceeding to cardiac c atheterization tomorrow morning for further evaluation. At the time of my evaluation this afternoon, he was asymptomatic and hemodynamically stable. He denied any chest pain, dyspnea, palpitations, or lightheadedness. Allergies Allergy/AdvReac Type Severity Reaction Status Date / Time vancomycin Allergy Intermediate DRUG RASH Verified 12/01/23 07:03 FROM [id number] ADM Home Medications Medication Instructions Recorded Confirmed Type CPAP Supplies #1 ea 02/06/19 12/01/23 Rx aspirin 81 mg tablet,delayed 81 mg PO QAM #90 tabs 04/14/19 12/01/23 Rx release multivitamin (Multiple Vitamins 1 tab PO DAILY #90 tabs 04/14/19 12/01/23 Rx tablet) blood sugar diagnostic (OneTouch #100 ea 09/13/20 12/01/23 Rx Ultra Blue Test Strip) lancets 32 gauge #100 ea 09/13/20 12/01/23 Rx CPAP Supplies #1 ea 02/06/21 12/01/23 Rx triamcinolone acetonide 0.1 % 1 applic topical BID PRN itchy 07/01/23 12/01/23 Rx topical cream skin #240 grams atorvastatin 20 mg tablet 20 mg PO HS #90 tabs 08/03/23 12/01/23 Rx bupropion HCl 100 mg tablet 100 mg PO DAILY #90 tabs 08/03/23 12/01/23 Rx metformin 500 mg tablet,extended 500 mg PO BID #180 tabs 08/03/23 12/01/23 Rx release 24 hr lisinopril 10 mg tablet 10 mg PO QAM #90 tabs 09/01/23 12/01/23 Rx CPAP Machine #1 ea 10/15/23 12/01/23 Rx pantoprazole 40 mg tablet,delayed 40 mg PO QAM #90 tabs 10/15/23 12/01/23 Rx release Patient History Medical History Osteoarthritis GERD (gastroesophageal reflux disease) heartburn/ indigestion Sleep apnea cpap Surgical History History of hand surgery left H/O tooth extraction History of cataract surgery right and left H/O neck surgery no limitations 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 Family History Father Cardiac disorder Diabetes Mother Colonic polyp Grandmother (Maternal) Stroke Social History Smoking Status: Former smoker Second Hand Exposure: No; Do You Dip or Chew Tobacco: No; Hx Alcohol Use: Yes Hx Substance Use: No Preferred Language: Frisian Communication Ability: Effective Visual Impairment: No Limitations Hearing Ability: Normal Vegetable Canner Required: No Beliefs That Will Affect Care: None Current Living Situation: Spouse current occupational status: employed current occupation: Psychologist Other Information That Helps Us Care for You: No Feels Safe at Home: Yes Safety Concerns: Feels Safe At This Time Seatbelt Use: always Assistive Devices: Denture - Upper, Glasses and Hearing Aid - Bilateral Physical Exam Physical Exam: Elderly white male in no distress. BP 144/84 mmHg. Pulse 78 bpm and regular. Skin: no ecchymoses or generalized lesions. HEENT: unremarkable. Neck: JVP at the clavicle at 90 degrees, no carotid bruits. Lungs: clear. Cardiac: regular rhythm, normal S1-2, no murmur. Abdomen: benign. Extremities: no edema, pulses intact. Neurologic: normal affect and conversation, nonfocal. Results & Data Laboratory Results Hemoglobin 13.1, normal white count and platelet count. Normal electrolytes, BUN 11, creatinine 1.01. Troponin negative x 2. Diagnostic Findings ECG on admission showed sinus rhythm at 85 bpm with first-degree AV block, PACs, possible age-indeterminate inferior infarct, poor R wave progression, and T wave inversion in the inferior and anterolateral leads. Compared to 2009 ECG, T wave inversions and criteria for inferior infarct are new. Chest x-ray was unremarkable, chest CT did show bovine variant arch anatomy, no evidence of pulmonary embolism. On stress echocardiogram, patient noted dyspnea at low workload but no angina, ECG showed no substantial ST changes, but echocardiogram showed development of inferior wall hypokinesis. Resting echo showed low normal systolic function (EF 50 to 55%) with no wall motion abnormalities and no significant valvular disease. PG Care Time/CCT Total # of Minutes Spent Total Time Spent with Patient: Total time spent is greater than 50% in coordination of care (as documented) at patient's floor/unit and/or counseling patient: Coding Level of Care Code 19383 INT INP/OBS CARE 3/75MIN Diagnoses Exertional chest pain R07.9 Abnormal stress echocardiogram R94.39 Diabetes mellitus, type 2 E11.9 Hypercholesterolemia E78.00 HTN (hypertension) I10
[2023-12-01] MEDS: ATORVASTATIN 20 MG TAB PO SCH (21:15)
[2023-12-01] MEDS: ACETAMINOPHEN 325 MG TAB PO PRN (21:15)
[2023-12-02 05:51] LABS: Basophils # (auto) 0.03 K/uL (0.00-0.20); Basophils % (auto) 0.6 %; Eosinophils # (auto) 0.18 K/uL (0.00-0.50); Eosinophils % (auto) 3.4 %; Hematocrit (blood only) 36.5 % (42.0-52.0); Hemoglobin 12.3 g/dl (14.0-18.0); Immature Granulocytes # (auto) 0.01 K/uL (0.01-0.20); Immature Granulocytes % (auto) 0.2 %; Lymphocytes # (auto) 1.62 K/uL (1.20-3.40); Lymphocytes % (auto) 30.3 %; Mean Corpuscular Hemoglobin 28.5 pg (25.0-34.0); Mean Corpuscular Hgb Conc 33.7 g/dL (32.0-36.0); Mean Corpuscular Volume 84.5 fL (80.0-100.0); Mean Platelet Volume 9.1 fL (9.4-12.4); Monocytes # (auto) 0.48 K/uL (0.11-0.59); Neutrophils # (auto) 3.03 K/uL (1.40-6.50); Neutrophils % (auto) 56.5 %; Platelet Count 155 K/uL (130-400); RDW Coefficient of Variation 13.9 % (11.5-14.5); RDW Standard Deviation 43.1 fL (36.4-46.3); Red Blood Count 4.32 M/uL (4.70-6.10); White Blood Count 5.35 K/ul (4.8-10.8)
[2023-12-02 06:06] LABS: BUN Creatinine Ratio 14.1 (10-20); Calcium 9.1 mg/dl (8.6-10.3); Chol HDL Ratio 3.9 (0-5); Creatinine Clr Calc Pharmacy 83.9 ml/min; Est GFR (African American) 100.2 ml/min; Est GFR (Non-African American) 86.4 ml/min; Magnesium 1.8 mg/dl (1.7-2.4)
[2023-12-02 06:19] LABS: INR 1.1 (0.9-1.1); Prothrombin Time 11.6 Seconds (9.0-12.0)
--- NOTE | 2023-12-02 06:35 | Hospitalist Progress Note ---
Date of Service December 02, 2023 Assessment & Plan (1) Exertional chest pain: (2) Abnormal stress echocardiogram: (3) Diabetes mellitus, type 2: (4) Hypercholesterolemia: (5) HTN (hypertension): Plan 73-year-old man with multiple vascular risk factors notes several months of exe rtional chest discomfort and demonstrated evidence of RCA territory myocardial ischemia on stress echocardiogram at low workload today. Unlikely that this could be medically managed given onset of symptoms at such a low workload, therefore after discussion of risks, benefits, and alternatives, through shared decision making determined that cardiac catheterization with possible revasc ularization would be appropriate. Arrangements underway for cardiac catheterization tomorrow morning. No rest symptoms or evidence of ongoing myocardial ischemia, therefore no need for anticoagulation. Continue aspirin, statin, and ARIA inhibitor. Further recommendations based upon catheterization results. Admission and Anticipated Discharge Date Admission Date: December 01, 2023 Results & Data Results & Data Vital Signs (Past 12 Hours) Vital Signs Temp Pulse Pulse Resp BP Pulse Ox O2 Del Method 12/02/23 04:00 36.6 C 64 18 134/74 97 Room Air 12/02/23 01:26 80 12/02/23 00:00 36.6 C 64 18 135/72 93 Room Air 12/01/23 21:36 Room Air, CPAP 12/01/23 19:14 37.2 C 82 17 143/78 H 97 Room Air
[2023-12-02 07:13] LABS: Estimated Average Glucose 154 mg/dl
[2023-12-02] MEDS: lisinopril 10 MG TAB PO SCH (09:38)
[2023-12-02] MEDS: PANTOprazole 40 MG TAB PO SCH (09:38)
[2023-12-02] MEDS: ASPIRIN 81 MG ECTAB PO SCH (09:38)
[2023-12-02] MEDS: buPROPion HCl 100 MG TABLET PO SCH (09:38)
--- NOTE | 2023-12-02 09:49 | Pre Anesthesia Assessment ---
Date of Service December 02, 2023 Pre Sedation Assessment Vital Signs Temp Pulse Pulse Pulse Resp BP BP 12/02/23 09:34 82 16 160/90 H 12/02/23 07:52 36.5 C 78 16 134/75 12/02/23 07:25 79 12/02/23 04:00 36.6 C 64 18 134/74 12/02/23 01:26 80 12/02/23 00:00 36.6 C 64 18 135/72 12/01/23 21:36 12/01/23 19:14 37.2 C 82 17 143/78 H 12/01/23 16:09 36.7 C 78 16 12/01/23 15:44 76 12/01/23 14:22 36.5 C 73 12/01/23 14:02 85 18 12/01/23 14:02 85 18 12/01/23 10:00 78 14 156/81 H BP Pulse Ox O2 Del Method 12/02/23 09:34 95 Room Air 12/02/23 07:52 93 Room Air 12/02/23 07:25 12/02/23 04:00 97 Room Air 12/02/23 01:26 12/02/23 00:00 93 Room Air 12/01/23 21:36 Room Air, CPAP 12/01/23 19:14 97 Room Air 12/01/23 16:09 144/84 H 96 Room Air 12/01/23 15:44 12/01/23 14:22 168/84 H 95 Room Air 12/01/23 14:02 155/88 H 97 Room Air 12/01/23 14:02 97 Room Air 12/01/23 10:00 97 Room Air Cardiovascular RRR, no murmur, no edema Respiratory normal respiratory effort, lungs clear to auscultation Pre-Sedation Airway Assessment Smoking Status: Former smoker Hx Sleep Apnea: Yes Short, Thick Neck: No Thyromental Distance: < 3.5 Finger Breadths Oral Cavity: + Dentures Mallampati Class: II ASA: ASA2 NPO Status Date of Last Intake of Fluids: 12/01/23 Time of Last Intake of Fluids: 20:45 Date of Last Intake of Solid Food: 12/01/23 Time of Last Intake of Solid Foods: 20:45 Notes The planned sedation has been discussed with the patient. Informed Consent was obtained. I have identified the patient, determined the appropriateness of sedation and have assessed the patient immediately prior to the procedure. All medicine(s) and interventions are by my order.
[2023-12-02] MEDS: lisinopril 5 MG TAB PO ONE (09:53)
[2023-12-02] MEDS: ASPIRIN 81 MG CHEW ONE (09:53)
[2023-12-02] MEDS: fentaNYL citrate PF 100 MCG/2 ML VIAL ONE (10:47)
[2023-12-02] MEDS: MIDAZOLAM HCL 1 MG/ML 2ML VIAL ONE ×2 (10:48→10:51)
[2023-12-02] MEDS: HEPARIN (PORCINE) 1000 UNIT/ML 10 ML (CATH LAB USE ONLY) ONE (10:48)
[2023-12-02] MEDS: niCARdipine HCL INJ 2.5 MG/ML 10 ML AMP ONE (10:49)
[2023-12-02] MEDS: OPTIRAY 350 ONE (10:49)
[2023-12-02] MEDS: NITROGLYCERIN/D5W 100MCG/ML 20ML SYR ONE (10:49)
[2023-12-02] MEDS: METOPROLOL TARTRATE 1 MG/ML VIAL IV ONE (10:50)
[2023-12-02] MEDS ORDERED: NITROGLYCERIN SL 0.4 MG/TAB TAB SL PRN (10:54)
[2023-12-02] MEDS: SODIUM CHLORIDE 0.9% 1,000 ML IV SCH (11:30)
[2023-12-02] MEDS: INSULIN ASPART PER UNIT CHARGE SC SCH (12:37)
--- NOTE | 2023-12-02 13:05 | Post Anesthesia Assessment ---
Date of Service December 02, 2023 Post Sedation Assessment Vital Signs Temp Pulse Pulse Pulse Resp BP BP 12/02/23 12:40 60 18 131/82 12/02/23 12:25 36.5 C 56 L 18 135/80 12/02/23 12:10 36.5 C 58 L 18 135/69 12/02/23 11:55 58 L 18 134/79 12/02/23 11:40 36.4 C L 96 H 18 135/77 12/02/23 11:16 68 18 130/75 12/02/23 10:59 36.9 C 66 16 127/96 12/02/23 09:34 82 16 160/90 H 12/02/23 07:52 36.5 C 78 16 134/75 12/02/23 07:25 79 12/02/23 04:00 36.6 C 64 18 134/74 12/02/23 01:26 80 12/02/23 00:00 36.6 C 64 18 135/72 12/01/23 21:36 12/01/23 19:14 37.2 C 82 17 143/78 H 12/01/23 16:09 36.7 C 78 16 144/84 H 12/01/23 15:44 76 12/01/23 14:22 36.5 C 73 168/84 H 12/01/23 14:02 85 18 155/88 H 12/01/23 14:02 85 18 Pulse Ox O2 Del Method 12/02/23 12:40 93 Room Air 12/02/23 12:25 93 Room Air 12/02/23 12:10 94 Room Air 12/02/23 11:55 96 Room Air 12/02/23 11:40 95 Room Air 12/02/23 11:16 96 Room Air 12/02/23 10:59 96 Room Air 12/02/23 09:34 95 Room Air 12/02/23 07:52 93 Room Air 12/02/23 07:25 12/02/23 04:00 97 Room Air 12/02/23 01:26 12/02/23 00:00 93 Room Air 12/01/23 21:36 Room Air, CPAP 12/01/23 19:14 97 Room Air 12/01/23 16:09 96 Room Air 12/01/23 15:44 12/01/23 14:22 95 Room Air 12/01/23 14:02 97 Room Air 12/01/23 14:02 97 Room Air Recovery Score Activity: Moves 4 extremities Respiration: Deep Breath/Cough Circulation: +/-20% PreAnes Value Consciousness: Fully Awake Oxygen Saturation: > 92% On Room Air Post Anesthesia Score: 10 Discharge Sedation Level of Care: Fast Track Phase II Post Sedation Plan On clinical assessment, the patient appears to have tolerated the sedation without complications. Patient is recovering as anticipated. Patient will continue to be monitored by nursing and may be discharged when sedation discharge criteria are met per below protocol. Upon Completions of procedure up to 15 minutes continue every 5 minute vital signs and the P.A.R. score; then discharge to a Phase I or Fast Track to Phase II per the following guidelines: * Discharge Patient to appropriate Phase II area if PAR is 8 or greater or return to pre- procedure baseline. The post - procedure orders will be as directed. * If PAR score is less than 8 or not return to pre-procedure baseline then patient will follow Phase I monitoring till PAR is reached for Phase II. The Phase I may be done in procedure room or may call to secure a Phase I area. * If naloxone or flumazenil are used for reversal, hold in Phase I for continued monitoring from when last reversal dose was given for a minimum of 60 minutes or longer pending the nurse and/or physician discretion of patient condition before discharge to Phase II. Please call the Sedation Physician to re-evaluate and complete post-note for discharge to Phase II area. Do NOT discharge from procedure sedation or Phase 1 until post- sedation evaluation note is complete by procedure /sedation MD Sedation Discharge Instructions to be given to the patient at discharge to home. [facility] Procedure Codes (Charges) Indication for Procedure Indication for procedure: PROGRESSIVE ANGINA ABNORMAL STRESS Sedation/Anesthesia Procedure 1: Sedation/Anesthesia: 47842 Mod Sedation by the same physician;Init15 Min Child Age 5 & Up (initial 15 min, start 1011) Total Sedation Time (minutes): 35 Procedure 2: Sedation/Anesthesia: 61408 Mod Sedation by the same physician; Ea [id number] Minutes (additional 20 min, end 1046) Total Sedation Time (minutes): 35
--- NOTE | 2023-12-02 15:53 | Hospitalist Progress Note ---
Date of Service December 02, 2023 Assessment & Plan (1) Exertional chest pain: Plan: (1) Exertional chest pain: -Currently stable and non-toxic appearing -Has been experiencing 3-4 months of exertional, left-sided chest pain which is relieved with rest -Patient does not have a previous hx of CT or coronary stent placement but has many risk factors for CAD including obesity, DMII, HTN, HLD, ROWAN -Initial high sen trop is WNL -stress echo with evidence of RCA territory CT -cardiac cath with 99% occlusion of RCA; cardiology recommending atherectomy-> [place] [facility] [place], statin, ACEi- consider adding beta-kavon/Plavix (2) Benign essential hypertension: -Stable -Continue lisinopril (3) Diabetes: -Hold metformin -Monitor BSG ACHS, goal is 110-160 -Start CF 50 and CF 15 ACHS for now -Hold basal insulin to avoid hypoglycemia -Adjust regimen as needed (4) Hypercholesterolemia: -Continue statin (5) ROWAN (obstructive sleep apnea): -HS CPAP ordered (2) Abnormal stress echocardiogram: (3) Diabetes mellitus, type 2: (4) Hypercholesterolemia: (5) HTN (hypertension): Admission and Anticipated Discharge Date Admission Date: December 01, 2023 Supervising Physician Co-Signing Physician Notes Attending Physician Supervision Note: I independently interviewed and examined the patient and verified the kerr history and physical, reviewed labs and image studies and agree with findings and care plan noted above. Subjective Pt seen at bedside this morning. No events overnight, no complaints. Review of Systems Review of Systems: As per above Physical Exam Physical Exam: Constitutional: well-appearing, no acute distress HEENT: NCAT, no conjunctival injection CV: regular rhythm, no murmur appreciated, extremities well-perfused, no LE edema Resp: CTABL, no wheezes/rales/rhonchi appreciated, no increased work of breathing MSK: no gross deformities appreciated Skin: warm, dry, no rash appreciated Neuro: alert, oriented, no focal neurologic deficit appreciated Results & Data Results & Data Vital Signs (Past 12 Hours) Vital Signs Temp Pulse Pulse Pulse Resp BP Pulse Ox 12/02/23 12:40 60 18 131/82 93 12/02/23 12:25 36.5 C 56 L 18 135/80 93 12/02/23 12:10 36.5 C 58 L 18 135/69 94 12/02/23 11:55 58 L 18 134/79 96 12/02/23 11:40 36.4 C L 96 H 18 135/77 95 12/02/23 11:16 68 18 130/75 96 12/02/23 10:59 36.9 C 66 16 127/96 96 12/02/23 09:34 82 16 160/90 H 95 12/02/23 07:52 36.5 C 78 16 134/75 93 12/02/23 07:25 79 12/02/23 04:00 36.6 C 64 18 134/74 97 O2 Del Method 12/02/23 12:40 Room Air 12/02/23 12:25 Room Air 12/02/23 12:10 Room Air 12/02/23 11:55 Room Air 12/02/23 11:40 Room Air 12/02/23 11:16 Room Air 12/02/23 10:59 Room Air 12/02/23 09:34 Room Air 12/02/23 07:52 Room Air 12/02/23 07:25 12/02/23 04:00 Room Air Resident Activity Tracking Resident Involvement: Resident Care Provided Care Provided: Adult Hospital Medicine
--- NOTE | 2023-12-02 15:56 | Cardiac Catheterization ---
[facility] Data: Manager Engagement Cardiac Status Clinical evaluation leading to the procedure CAD Presenation: Positive Stress Test (CCS class III angina, inferior wall motion abnormality on stress echo) Anginal Classification: CCS III Heart Failure: No Cardiogenic Shock within 24 Hours: No Cardiac Arrest within 24 Hours: No Imaging Studies Past 6 Months: Yes Stress Studies Past 6 Months: Yes Stress Echocardiogram: Yes - Positive Coronary Anatomy Left Main (% Stenosis): Ostial (20%) LAD (% Stenosis): Proximal (40%) D1 (% Stenosis): Normal D2 (% Stenosis): Normal Circumflex (% Stenosis): Proximal (20%) OM1 (% Stenosis): Normal OM2 (% Stenosis): Normal RCA (% Stenosis): Ostial (Dilated), Proximal (50%), Mid (Diffuse up to 99%) and Distal (Tandem 30% and 40%) R PDA (% Stenosis): Normal R PL1 (% Stenosis): Normal Ramus (% Stenosis): Normal Diagnostic Physicians Name: Pietro Stein MD, PhD Closure Device Percutaneous Entry Location: Radial Closure Device: Radial Band Recommendations: Medical Therapy and/or Counseling and PCI without planned CABG PCI Indication: + Stress Test and Stable Angina Lesion Segment Name: Mid RCA Culprit Artery: Yes Stenosis Prior to Rx (%): 99% Chronic Total Occlusion: No Pre-Procedure JANNETTE Flow: 3 Previously Treated Lesion: No Lesion Complexity: High/C Lesion Length (mm): 10 Thrombus Present: No Bifurcation Lesion: No Guidewire Across Lesion: Yes Intraprocedure Events Significant Disection: No Perforation: No Cardiac Cath Procedure Full Procedure Date December 02, 2023 Pre-Procedure Diagnosis Pre-Procedure Diagnosis: Positive Stress Test AUC Score AUC Score: 07 Post-Procedure Diagnosis Post-Procedure Diagnosis: Severe CAD and Unsuccessful PCI Procedure(s) Performed Procedure(s) Performed: Coronary Angiography Water Supply Technician Pietro Stein MD, PhD Estimated Blood Loss Estimated Blood Loss: 5CC Medication(s) Medication(s): Fentanyl, Heparin, Lidocaine 1%, Nicardipine, Nitroglycerin and Versed Summary of Findings Brief description: Patient was brought to the cardiac catheterization suite where he was shaved and prepped in a sterile fashion. Sedated using IV Versed and fentanyl. Soft tissues of the right wrist were anesthetized using 2 mL 1% Xylocaine. The right radial artery was accessed with a modified Seldinger technique and a 6 Danish radial artery glide sheath was placed. Patient was provided anticoagulation with IV heparin and antispasmodics including nicardipine and nitroglycerin. All catheters were advanced and exchanged over a 0.035 J-tip wire. Left coronary angiography performed in orthogonal views with a 5 Danish JL 3.5 diagnostic catheter. Right coronary angiography in orthogonal views with a 5 [place] 4 diagnostic catheter. Diagnostic catheters were removed. Decision was made to attempt PCI of the mid RCA lesion. ACT was checked and additional heparin was provided as needed throughout the case to maintain therapeutic anticoagulation. 6 Danish JR4 guide catheter was used to engage the right coronary artery. BMW reversal guidewire was advanced and positioned distally in the RCA. Attempted to predilate the lesion with a 2.5 x 12 mm trek balloon. We could not deliver the balloon across the tight lesion. Reattempt to predilate the lesion with a 1.5 x 8 mm mini trek balloon. We could not deliver the balloon across the lesion. 6 Danish guide liner was advanced. Attempted to predilate the lesion with a 1.25 x 6 mm sprinter balloon. We could not deliver the balloon across the lesion. It was apparent that the very small residual lumen would not be amenable to direct angioplasty. We therefore abandon further attempts at PCI at this institution. Guide liner, guidewire, and PTCA balloon were all removed. Guide catheter was then removed. Radial artery sheath was removed. Hemostasis was obtained using the radial band. Patient was hemodynamically stable and asymptomatic. He was returned to the recovery area. This ended the case. Coronary angiography findings: XED-prynj-ctcztvb vessel trifurcating into LAD, ramus, and circumflex. Ostial 20 to 30% stenosis. OBD-ozdpz-ebolhxq and transapical. Proximal segment with luminal irregularities until the level of the first diagonal and first large septal. Here just before this area is a focal 30% stenosis. Mid vessel has diffuse luminal irregularities. There is a medium caliber branching second diagonal. The distal vessel has mild luminal irregularities. Diagonal vessels without significant disease. Eptzi-shtvu-dtmjrdn and branches distally. No angiographically significant disease. WYw-bashj-eihowqb and nondominant. Proximal up to 20% narrowing. First branch is an atrial branch followed by obtuse marginal branch #1. This is medium caliber and branching. The mid AV groove vessel continues where it provides a small OM 2 and then terminates distally. There is no more than mild luminal irregularities in the circumflex and its branches. YDW-hglwe-lgwnukn and dominant. Dilated ostium and then proximal segment with 40 to 50% stenosis. There is mild calcification in the proximal and mid vessel. After a small RV marginal the mid segment has diffuse disease with stenosis of up to 99% occurring just prior to the larger second marginal branch. The distal RCA has diffuse luminal irregularities with tandem 30 and 40% stenosis. Vessel bifurcates into PDA and posterolateral branches which are angiographically normal. Summary: 1. Severe RCA stenosis as described. This is consistent with his stress test findings and is the culprit for his anginal symptoms. 2. Recommend PCI of the RCA. Attempts here were unsuccessful secondary to the severe stenosis. Although the vessel does have some tortuosity it may be amenable to atherectomy which is unavailable at this institution. Recommend referral to tertiary center regarding advanced/complex PCI. 3. Guideline directed medical therapy for secondary prevention of coronary artery disease to include; low-dose aspirin, high intensity statin therapy, beta-kavon, and ARIA inhibitor or angiotensin receptor kavon. Would also place loading dose of Plavix 300 mg p.o. x 1 and then Plavix 75 mg p.o. daily thereafter. Hemodynamics Rest Ao:: 122/72 mmHg Final Ao: 124/65 mmHg LV: Not performed Recommendations Recommendations: Medical Therapy and/or Counseling and PCI without planned CABG Radiation Exposure (mGy) 1925 mGy Contrast (mls) 165 mL Anesthesia 3 mg Versed, 50 mcg fentanyl IV. Start time 1011, end time 1046 Procedural Complication(s) None Disposition Manager Engagement Holding/Recovery I attest to the content of the Intraoperative Record and any orders documented therein. Any exceptions are noted below. [facility] Card Cath Procedure Codes Cardiac Catheterization Procedure 1: Cardiovascular Cath Procedures: 82086 Coronaries Moderate Sedation Procedure 1: Sedation/Anesthesia: 11970 Mod Sedation by the same physician;Init15 Min Child Age 5 & Up (Initial 15 minutes, start time 11) Procedure 2: Sedation/Anesthesia: 84018 Mod Sedation by the same physician; Ea [id number] Minutes (Additional 20 min, end time 1046) PG Care Time/CCT Total # of Minutes Spent Total Time Spent with Patient: Total time spent is greater than 50% in coordination of care (as documented) at patient's floor/unit and/or counseling patient:
--- NOTE | 2023-12-03 17:34 | Discharge Summary ---
Date of Service December 03, 2023 Admission HPI Per Admitting Provider Eze is a 73 year old male with a PMH significant for DMII, HTN, ROWAN on HS CPAP, superficial phlebitis (completed Xarelto therapy), hyperlipidemia, and GERD who presented to the [facility] ED on 12/01/23 from his PCP's office for ongoing exertional chest pain over the past 3-4 months. He remained stable in the ED. Labs including CBC, CMP, high sen trop, lipase, and UA were unremarkable. ECG shows sinus rhythm with 1st degree AV block and possible and age undetermined inferior/anterior infarcts. Chest xray was read as negative for acute findings. We were asked to admit the patient for ongoing workup. Prior to admission the patient was given 243 mg Aspirin. At the time of the exam the patient was sitting in bed in no acute distress. He confirms that he has been experiencing left-sided exertional chest pain over the past 3-4 months. Pain usually stays on the left sternal border and does not radiate. Does not typically occur at rest, is relieved with rest, and has stayed fairly consistent over this time. Denies a previous hx of TX or needed cardiac stents, brother had an TX at 50 but he otherwise does not have significant cardiac hx on either side of his family. Denies SOB at rest, pleuritic chest pain, cough, hemoptysis, nausea/vomiting, abdominal pain, dysuria hematuria, diarrhea, melena, LE swelling, long travel, LE trauma. He does not use alcohol or tobacco. He is a full code and his is his POA if he cannot make decisions himself. Please refer to Dr. Foley's attestation for any changes to the treatment plan Principal Diagnosis RCA Occlusion Discharge Data Allergies Allergy/AdvReac Type Severity Reaction Status Date / Time vancomycin Allergy Intermediate DRUG RASH Verified 12/01/23 07:03 FROM [id number] ADM Consultations 12/01/23 10:37 ED Decision to Admit Stat 12/01/23 10:57 Consult Cardiology Routine 12/02/23 10:54 Consult Cardiac Rehabilitation Routine 12/02/23 15:41 Burn CD for patient Stat Procedures Performed Operation Date: 12/02/23 09:30 Actual Procedures p Cath, Coronaries ONLY (no LV) - Pietro Stein MD, PhD s Cineradiography w/Routine Exam - Pietro Stein MD, PhD Ordered Studies Laboratory Results WBC 5.35 K/ul (4.8-10.8) 12/02/23 05:31 RBC 4.32 M/uL (4.70-6.10) L 12/02/23 05:31 Hgb 12.3 g/dl (14.0-18.0) L 12/02/23 05:31 Hct 36.5 % (42.0-52.0) L 12/02/23 05:31 MCV 84.5 fL (80.0-100.0) 12/02/23 05:31 MCH 28.5 pg (25.0-34.0) 12/02/23 05:31 MCHC 33.7 g/dL (32.0-36.0) 12/02/23 05:31 RDW Std Deviation 43.1 fL (36.4-46.3) 12/02/23 05:31 RDW Coeff of [place] 13.9 % (11.5-14.5) 12/02/23 05:31 Plt Count 155 K/uL (130-400) 12/02/23 05:31 MPV 9.1 fL (9.4-12.4) L 12/02/23 05:31 Immature Gran % (Auto) 0.2 % 12/02/23 05:31 Neut % (Auto) 56.5 % 12/02/23 05:31 Lymph % (Auto) 30.3 % 12/02/23 05:31 [place] % (Auto) 9.0 % 12/02/23 05:31 Eos % (Auto) 3.4 % 12/02/23 05:31 Baso % (Auto) 0.6 % 12/02/23 05:31 Neut # (Auto) 3.03 K/uL (1.40-6.50) 12/02/23 05:31 Lymph # (Auto) 1.62 K/uL (1.20-3.40) 12/02/23 05:31 [place] # (Auto) 0.48 K/uL (0.11-0.59) 12/02/23 05:31 Eos # (Auto) 0.18 K/uL (0.00-0.50) 12/02/23 05:31 Baso # (Auto) 0.03 K/uL (0.00-0.20) 12/02/23 05:31 Immature Gran # (Auto) 0.01 K/uL (0.01-0.20) 12/02/23 05:31 ESR 16 mm/hr (0-20) 12/01/23 09:03 PT 11.6 Seconds (9.0-12.0) 12/02/23 05:31 INR 1.1 (0.9-1.1) 12/02/23 05:31 APTT 25 Seconds (21-31) 12/01/23 09:03 PTT Ratio 0.9 12/01/23 09:03 Activ Coag Time Kaolin 201 SECONDS (94-140) H 12/02/23 10:46 D-Dimer 620 ug/L FEU (0-500) H* 12/01/23 09:03 Sodium 137 mmol/L (136-145) 12/02/23 05:31 Potassium 4.0 mmol/L (3.5-5.1) 12/02/23 05:31 Chloride 103 mmol/L (98-107) 12/02/23 05:31 Carbon Dioxide 28 mmol/L (21-32) 12/02/23 05:31 Anion Gap 6 (3-11) 12/02/23 05:31 BUN 12 mg/dl (6-23) 12/02/23 05:31 Creatinine 0.85 mg/dl (0.6-1.4) 12/02/23 05:31 Est Cr Clr Drug Dosing 83.9 ml/min 12/02/23 05:31 Est GFR ( Amer) 100.2 ml/min 12/02/23 05:31 Est GFR (Non-Af Amer) 86.4 ml/min 12/02/23 05:31 BUN/Creatinine Ratio 14.1 (10-20) 12/02/23 05:31 Glucose 111 mg/dl (70-99(Fasting)) H 12/02/23 05:31 POC Glucose 85 mg/dl (70-99) 12/02/23 20:03 Estimat Average Glucose 154 mg/dl 12/02/23 05:31 Hemoglobin A1c 7.0 % (4.5-5.6) H 12/02/23 05:31 Calcium 9.1 mg/dl (8.6-10.3) 12/02/23 05:31 Magnesium 1.8 mg/dl (1.7-2.4) 12/02/23 05:31 Total Bilirubin 0.6 mg/dl (0.2-1.0) 12/01/23 09:03 AST 27 U/L (13-39) 12/01/23 09:03 ALT 29 U/L (7-52) 12/01/23 09:03 Alkaline Phosphatase 55 U/L (34-104) 12/01/23 09:03 Troponin I High Sens 10.2 pg/ml (0-20) 12/01/23 11:06 C-Reactive Protein < 0.50 mg/dl (0-0.5) 12/01/23 11:06 Total Protein 7.2 gm/dl (6.0-8.3) 12/01/23 09:03 Albumin 4.1 gm/dl (3.4-5.0) 12/01/23 09:03 Globulin 3.1 gm/dl (2.5-4.0) 12/01/23 09:03 Albumin/Globulin Ratio 1.3 (0.9-2) 12/01/23 09:03 Triglycerides 160 mg/dl (0-150) H 12/02/23 05:31 Cholesterol 106 mg/dl (0-200) 12/02/23 05:31 LDL Cholesterol, Calc 47 mg/dl 12/02/23 05:31 VLDL Cholesterol, Calc 32 mg/dl (0-30) H 12/02/23 05:31 HDL Cholesterol 27 mg/dl 12/02/23 05:31 Cholesterol/HDL Ratio 3.9 (0-5) 12/02/23 05:31 Lipase 32 U/L (11-82) 12/01/23 09:03 Urine Color Yellow 12/01/23 09:07 Urine Appearance Clear (Clear) 12/01/23 09:07 Urine pH 8.0 (4.5-7.5) H 12/01/23 09:07 Ur Specific [place] 1.007 (1.000-1.030) 12/01/23 09:07 Urine Protein Negative (Negative) 12/01/23 09:07 Urine Glucose (UA) Negative (Negative) 12/01/23 09:07 Urine Ketones Negative (Negative) 12/01/23 09:07 Urine Blood Negative (Negative) 12/01/23 09:07 Urine Nitrite Negative (Negative) 12/01/23 09:07 Urine Bilirubin Negative (Negative) 12/01/23 09:07 Urine Urobilinogen Negative (Negative) 12/01/23 09:07 Ur Leukocyte Esterase Negative (Negative) 12/01/23 09:07 Impressions Chest X-Ray 12/01/23 09:01 XR chest 1V portable CLINICAL HISTORY: Chest pain, nonspecific TECHNIQUE: Single frontal radiograph of the chest was obtained. Comparison: None available at the time of this dictation. FINDINGS: ACDF is seen. The cardiomediastinal silhouette is normal. The lungs are clear. No evidence of pleural effusion or pneumothorax. IMPRESSION: No acute chest disease. ACT 112: Negative or not required by law. Electronically signed by: Erasmo Ku M.D. 12/01/2023 10:08 AM Chest CTA 12/01/23 11:37 CT ANGIOGRAM OF THE CHEST CLINICAL HISTORY: Dyspnea COMPARISON STUDY: Chest x-ray dated 12/01/2023. TECHNIQUE: Following the IV administration of 118 cc of Optiray 320, CT angiogram of the chest was performed from the upper abdomen to the thoracic inle t utilizing the pulmonary embolus protocol. Images are reviewed in the axial, sagittal, and coronal planes. 3-D MIPS images are created and assessed. IV contrast was administered without complication. A dose lowering technique was utilized adhering to the principles of ALARA. CT DOSE: 790.06 mGy.cm FINDINGS: Thyroid: Imaged portions of the thyroid gland are normal in size and attenuation. Thoracic aorta: There is atherosclerotic calcification of the thoracic aorta, which is normal in caliber and demonstrates bovine variant arch anatomy. No dissection is seen. Pulmonary vasculature: The pulmonary trunk is normal in caliber. There are no filling defects identified in main, lobar, or segmental pulmonary branches to suggest pulmonary embolus. Heart: The heart is enlarged and without pericardial effusion. There are coronary artery calcifications. Lungs and pleural spaces: Evaluation of the lung parenchyma is degraded by motion artifact. There is no airspace consolidation typical for pneumonia or pleural effusion. Scarring/atelectasis is noted at the lung bases. Emphysematous change is observed. Secretions are noted in the upper trachea. There are scattered calcified granulomas. Mediastinum: There are numerous subcentimeter mediastinal lymph nodes. Beba: Prominent bilateral hilar nodes measure up to 9 mm in short axis. Axillae: There is no axillary lymphadenopathy. Upper abdomen: The liver is still taut. Calcifications are noted in the right hepatic lobe. There are numerous calcified gallstones the spleen is mildly enlarged measuring 13.7 cm in length. Prominent lymph nodes are noted in the taz hepatis. There is a small hiatal hernia. Skeletal structures: The skeletal structures are osteopenic. Degenerative change is noted in the shoulders and spine. Fusion hardware is seen in the lower cervical spine. No lytic or blastic bony lesions are seen. IMPRESSION: 1. There is no evidence of pulmonary embolus in the main, lobar, or segmental pulmonary arteries. 2. There is no airspace consolidation or pleural effusion. 3. Cardiomegaly and emphysema. 4. Prominent mediastinal and hilar nodes are nonspecific and may be reactive. 5. Hepatic steatosis, splenomegaly, and cholelithiasis are seen in the upper abdomen. 6. Additional findings as above. ACT 112: Negative or not required by law. Electronically signed by: Daniel Bush M.D. 12/01/2023 12:27 PM Hospital Course (1) Exertional chest pain: (1) Exertional chest pain: -Currently stable and non-toxic appearing -Has been experiencing 3-4 months of exertional, left-sided chest pain which is relieved with rest -Patient does not have a previous hx of TX or coronary stent placement but has many risk factors for CAD including obesity, DMII, HTN, HLD, ROWAN -Initial high sen trop is WNL -stress echo with evidence of RCA territory TX -cardiac cath with 99% occlusion of RCA; cardiology recommending atherectomy-> transfer to [facility] [place] - continue asp, statin, ACEi- consider adding beta-kavon/Plavix (2) Benign essential hypertension: -Stable -Continue lisinopril (3) Diabetes: -Hold metformin -Monitor BSG ACHS, goal is 110-160 -Start CF 50 and CF 15 ACHS for now -Hold basal insulin to avoid hypoglycemia -Adjust regimen as needed (4) Hypercholesterolemia: -Continue statin (5) ROWAN (obstructive sleep apnea): -HS CPAP ordered (2) Abnormal stress echocardiogram: (3) Diabetes mellitus, type 2: (4) Hypercholesterolemia: (5) HTN (hypertension): Total Time Total Time Spent Total Time Spent (In Minutes): 30 Discharge Plan Discharge Items Patient Disposition: Transfer Acute Care Hospital Reason For Visit: EXERTIONAL CHEST PAIN Discharge Diagnosis: Occlusion RCA Activity: Per Instructions section Non-emergency contact: Primary Care Provider Call non-emergency contact if: you have any medication questions Follow-up/Referrals: Daniel Saldana MD [Primary Care Provider] - Diet: Regular and Heart Healthy Addtl Attending Provider Instructions: (1) Exertional chest pain: -Currently stable and non-toxic appearing -Has been experiencing 3-4 months of exertional, left-sided chest pain which is relieved with rest -Patient does not have a previous hx of TX or coronary stent placement but has many risk factors for CAD including obesity, DMII, HTN, HLD, ROWAN -Initial high sen trop is WNL -stress echo with evidence of RCA territory TX -cardiac cath with 99% occlusion of RCA; cardiology recommending atherectomy-> transfer [place] [facility] [place] - continue asp, statin, ACEi- consider adding beta-kavon/Plavix (2) Benign essential hypertension: -Stable -Continue lisinopril (3) Diabetes: -Hold metformin -Monitor BSG ACHS, goal is 110-160 -Start CF 50 and CF 15 ACHS for now -Hold basal insulin to avoid hypoglycemia -Adjust regimen as needed (4) Hypercholesterolemia: -Continue statin (5) ROWAN (obstructive sleep apnea): -HS CPAP ordered Pending Studies at Discharge: No Stand-Alone Forms: My [facility] Skilled Items Patient informed of condition?: Yes DNR: No Discharge Level of Care: Other Communicable Disease: No Discharge Prognosis: Stable Lines: Peripheral IV Urinary Catheter: No Medications and DC Order Prescriptions: Continued (DME) CPAP Supplies Misc See Dose Instructions .ROUTE .MEDSUPPLY Qty: 1 0RF Dose Instruction: As directed Rx Instructions: As directed (DME) OneTouch Ultra Blue Test Strip Strip See Rx Instructions .ROUTE .MEDSUPPLY Qty: 100 3RF Rx Instructions: once daily E11.22 (DME) lancets 32 gauge misc See Rx Instructions .ROUTE .MEDSUPPLY Qty: 100 3RF Rx Instructions: once daily E11.22 (DME) CPAP Supplies Misc See Rx Instructions .Route Qty: 1 11RF Rx Instructions: CPAP Face mask, hose, head harness, filters. triamcinolone acetonide 0.1 % cream 1 applic TOP BID PRN (Reason: itchy skin) Qty: 240 3RF atorvastatin 20 mg tablet 20 mg PO HS Qty: 90 3RF bupropion HCl 100 mg tablet 100 mg PO DAILY Qty: 90 3RF lisinopril 10 mg tablet 10 mg PO QAM Qty: 90 3RF pantoprazole 40 mg tablet,delayed release (DR/EC) 40 mg PO QAM Qty: 90 3RF (DME) CPAP Machine Misc See Rx Instructions .Route Qty: 1 0RF Rx Instructions: Self titrating, pressure 4-20 aspirin 81 mg tablet,delayed release (DR/EC) 81 mg PO QAM Qty: 90 3RF multivitamin [Multiple Vitamins] tablet 1 tab PO DAILY Qty: 90 3RF Held metformin 500 mg tablet extended release 24 hr 500 mg PO BID Qty: 180 3RF Hold Instructions: Hold while admitted Discharge Orders: Discharge Order (Routine); Ordered 12/03/23 Ordered By: Yousuf Bowles/Other Patient Handouts: Mediterranean Diet, Managing Type 2 Diabetes Admission Data Admit Date/Time: 12/01/23 10:55 Attending Provider: Olesya Johnson Admit Provider: Michaela Foley Primary Care Provider: Daniel Saldana Other Providers: Michaela Foley; Tyler Adams Supervising Physician Co-Signing Physician Notes Attending Physician Supervision Note: I independently interviewed and examined the patient and verified the kerr history and physical, reviewed labs and image studies and agree with findings and care plan noted above. Resident Activity Tracking Resident Involvement: Resident Care Provided Care Provided: Adult Hospital Medicine
== END 2023-12-02 20:27 | disposition short-term general hospital (02) ==
LOC: ED 08:44 → EDINP 08:44 → SUATTDRO 10:55 → 2N 12:39 → 2S 12-02 11:24
PROC: CLB.CCO (2023-12-02 09:30)